=== PATIENT | female | born 1950 | race Caucasian/White ===

== ENCOUNTER 2017-07-11 06:40 | Outpatient (CLI) ==
[2016-09-05 07:19] VITALS: BMI 31.1
--- NOTE | 2017-07-11 09:28 | STRESSECHO ---
Date of Test: 07/11/2017 Reason for Exam: Chest Pain Ordering Physician: Michael Niño Current Medications: Synthroid, Colestipol, 81mg ASA, Vit D, multi vitamin Resting EKG: Sinus rhythm/no acute changes Target Heart Rate: 129 STAGE MPH/GRADE HEART RATE BPM BLOOD PRESSURE mmhg RHYTHM S-T SEGMENT +/- UP DOWN SYMPTOMS,COMMENTS At Rest 67 130/72 SR X NONE 1 1.7/10% 116 160/74 SR X NONE 2 2.5/12% 3 3.4/14% 4 4.2/16% 5 5.0/18% Immediately after 132 SR X CHEST TIGHTNESS Durations of Exercise: 6:21 Maximum Heart Rate Reached: 138 Reason for Termination: CHEST TIGHTNESS 3 Min Post Exercise: HR: 75 BPM BP 152/70 MMHG, SR, NO CHEST PAIN 5 Min Post Exercise: HR 75 BPM BP 132/78 MMHG, SR, NO CHEST PAIN INTERPRETATION: 97% O2 SATURATION WITH EXERCISE METS 8.0 1. TEST POSITIVE FOR ISCHEMIC ST-T WAVE CHANGES 2. CHEST TIGHTNESS WITH EXERCISE 3. ISOLATED PREMATURE VENTRICULAR CONTRACTIONS WITH EXERCISE 4. BLOOD PRESSURE RESPONSE NORMAL 5. MAYBE QUESTIONABLE HYPOKINESIA OF INFERIOR POST WALL WITH EXERCISE 6. RESTING LEFT VENTRICULAR CONTRACTILITY NORMAL MTDD
--- NOTE | 2017-07-11 09:42 | ECHOSTRESS ---
Date of Exam: 07/11/2017 Ordering Physician: INDER QUIÑONES Reason for Echo: CHEST PAIN, STRESS TEST POSITIVE FOR ISCHEMIA M-Mode Normal Adult Results LV Dimensions Normal Adult Results AoV Opening excursions >1.6 LVEDD-base- 3.5-5.8 Ao root dimensions 2.0-3.7 LVESD-base- 3.1-4.6 L. Atrium dimensions 1.9-3.8 Post. Wall thickness 0.8-1.1 IV septum (thickness) 0.7-1.2 Post. Wall excursion 0.72-1.3 Septal motion Systolic motion R. Ventricular cavity 1.5-2.0 LVEF 60% Paradoxical septal wall motion 2-D: NORMAL LEFT VENTRICULAR CONTRACTILITY-RESTING NORMAL. QUESTIONABLE HYPOKINESIA OF INFERIOR POST WALL WITH EXERCISE. M-MODE: MV: AV: TV: PV: CHAMBER SIZE: WALL MOTION: NORMAL LEFT VENTRICULAR CONTRACTILITY- RESTING NORMAL. QUESTIONABLE HYPOKINESIA OF INFERIOR POST WALL WITH EXERCISE. PERICARDIUM: INTERPRETATION: 1. NORMAL LEFT VENTRICULAR CONTRACTILITY- RESTING NORMAL. QUESTIONABLE HYPOKINESIA OF INFERIOR POST WALL WITH EXERCISE. MTDD
== END 2017-07-11 06:41 | disposition home or self-care (01) ==
LOC: CAR 06:40
PROVIDERS: ATTEND Family Medicine
DX: R07.9 Chest pain, unspecified (principal)